=== PATIENT | female | born 1980 | race Caucasian/White ===

== ENCOUNTER 2017-06-15 19:03 | Inpatient (IN) | payer OTHER ==
--- NOTE | 2017-06-15 21:09 | OBPROG ---
Labor Progress Note Assessment/Plan: Assessment: cat 1 fhr exam 50/-3 ballotable soft posterior cephalic no contractions noted continuous monitoring derek in office 4-5 placenta calcifications Plan: admit for iol chau bulb pitocin per protocol 06/15/17 21:07 Subjective/Intrapartum Course: 06/15/17 21:06 Doing well denies pain. Able to discuss POC denies questions ok with placement of the chau bulb to assist with ripening of the cervix - SVE Dilation (cm): 1 Effacement (%): 50 Station: -2 Membranes: Intact - FHR Assessment Gonzalez FHR (bpm): 135 FHR Pattern Variability: Moderate - Physical Exam General Appearance: WD/WN, alert, no apparent distress Respiratory: chest non-tender, lungs clear, normal breath sounds Cardiac/Chest: regular rate, rhythm Abdomen: normal bowel sounds Extremities: normal range of motion, Chely's sign (negative bilaterally) DTR- Lower Extremities: Knee (R): 1+, Knee (L): 1+ (no clonus) Skin: normal color, warm/dry Neuro/Psych: no motor/sensory deficits, alert, normal mood/affect, oriented x 3 Oxytocin Orders Assessment - Pre-Induction/Augmentation Assessment Gestational Age: 39 week(s) and 1 day(s) ICD10 Worksheet Patient Problems: Problems Problem Status Onset iol low derek term Acute
[2017-06-15] MEDS ORDERED: OXYTOCIN 20 UNIT in LR 1,000 ML IV PRN (21:10)
[2017-06-15] MEDS ORDERED: TERBUTALINE SULFATE 1 MG/ML VIAL IV PRN (21:10)
[2017-06-15] MEDS ORDERED: EPSOM SALT 454 GM TP PRN (21:10)
[2017-06-15] MEDS ORDERED: LR 1,000 ML IV PRN (21:10)
[2017-06-15] MEDS ORDERED: OLIVE OIL 118 ML BTL MISC PRN (21:10)
[2017-06-15 22:20] LABS: % IMMATURE GRANULYOCYTES 0.5 % (0.0-1.1); ABSOLUTE IMMATURE GRANULOCYTES 0.05 10^3/uL (0.00-0.10); ADD DIFF? NO; ADD MORPH? NO; ADD SCAN? NO; ATYPICAL LYMPHOCYTE FLAG 0 (0-99); FRAGMENT RBC FLAG 10 (0-99); HEMATOCRIT 36.4 % (38.0-47.0); HEMOGLOBIN 12.9 g/dL (12.6-16.3); LEFT SHIFT FLG 0 (0-99); LIPEMIA HEMOLYSIS FLAG 90 (0-99); MEAN CELL HEMOGLOBIN 31.5 pg (27.9-34.1); MEAN CELL HEMOGLOBIN CONCENTR. 35.4 g/dL (32.4-36.7); MEAN PLATELET VOLUME 9.6 fL (8.7-11.7); PLATELET CLUMPS FLAG 10 (0-99); PLATELET COUNT 307 10^3/uL (150-400); RED BLOOD CELL COUNT 4.09 10^6/uL (4.18-5.33)
--- NOTE | 2017-06-15 22:56 | GHP ---
[f rep st] HISTORY AND PHYSICAL DATE OF ADMISSION: 06/15/2017 HISTORY OF PRESENT ILLNESS: Patient is a 1, para 0, 36-year-old, with an EDC of 06/21/2017, who comes in on June 15 from the office with decreased ALY 4-5, decreased movement. NST th at was reactive and reassuring in the office, for induction of labor with a Ring bulb and then Pitoc in per protocol. The patient has been routinely seeing [facility] since 17 weeks and 6 day s. MEDICAL HISTORY: Asthma, exercise-induced; UTI; mild headaches; dizziness; cystitis. SURGICAL HISTORY: [place] teeth extraction. SPECIAL DIET: Patient is a vegetarian. PRESENT HISTORY: Rubella nonimmune, AMA, Rh negative. GYNECOLOGICAL HISTORY: 12 years for beginning of menarche, 28 days, 5-7 day length. Last menstrual period was 09/14/2016. Certain dates, test that was positive on 10/12/2016. Patient is a 2, P0, A1, living 0. EAB was in 2014. OTHER GYNECOLOGICAL HISTORY ParaGard was inserted in 08/2014. IUD removed in 07/2016. Last Pap was 12/18/2016. That was within normal limits. PHYSICAL ASSESSMENT: GENERAL: Patient is awake, alert, oriented x3. LUNGS: Clear bilaterally. AB DOMEN: Bowel sounds are positive in all 4 quadrants. EXTREMITIES: DTRs are 1+ bilaterally. No leo nus. Homans sign is negative bilaterally. LABS: RPR is nonreactive. Gonorrhea and chlamydia are negative. Hepatitis B is negative. Hepatiti s C is negative. HSV is negative. 1 and 2 are negative. HIV is negative. Parvovirus is immune. G BS is negative. was negative. Trio screen was negative. TSH was within normal limits at 1.42. AFP was negative. 1-hour GTT was within normal limits. Varicella was negative. SOCIAL HISTORY: Patient denies tobacco use. Denies drug use. to Burak. Burak has a 4- year-old son, Davide. ALLERGIES: No known drug allergies. ROUTINE MEDICATIONS: vitamins with DHA, vitamin D 3000 international units, ProAir inhaler of albuterol when needed. PLAN OF CARE: 1. GBS negative. 2. Ring bulb for mechanical dilation of cervix. 3. Pitocin per protocol. 4. Consult physician as needed for plan of care. /[id number]/MODL
--- NOTE | 2017-06-15 23:44 | OBPROG ---
Labor Progress Note Assessment/Plan: Assessment: cat 1 fhr exam 450/-2 soft posterior cephalic irregular contractions continuous monitoring chau bulb out with traction declines pitocin at this time would like to rest until the am 0430 will begin pitocin per protocol derek in office 4-5 placenta calcifications Plan: pitocin per protocol 06/15/17 21:07 06/15/17 23:42 Subjective/Intrapartum Course: 06/15/17 21:06 Doing well denies pain. Able to discuss POC denies questions ok with placement of the chau bulb to assist with ripening of the cervix 06/15/17 23:43 resting well. Feeling back pain irregularly Objective: 06/15/17 22:06 Patient ABO/Rh O NEGATIVE 06/15/17 22:06 - SVE Dilation (cm): 4 Effacement (%): 50 Station: -2 Membranes: Intact - Contraction Pattern Assessment Current Contraction Pattern: Irregular - FHR Assessment Gonzalez FHR (bpm): 135 FHR Pattern Variability: Moderate FHR Category: 1 Oxytocin Orders Assessment - Pre-Induction/Augmentation Assessment Gestational Age: 39 week(s) and 1 day(s) ICD10 Worksheet Patient Problems: Problems Problem Status Onset iol low derek term Acute
[2017-06-15] MEDS ORDERED: OXYTOCIN 30 UNIT in NS 500 ML IV SCH (23:45)
[2017-06-16] MEDS ORDERED: LIDOCAINE 1% 300 MG/30 ML SDV ONE (05:35)
[2017-06-16] MEDS ORDERED: OLIVE OIL 118 ML BTL ONE (05:35)
[2017-06-16] MEDS ORDERED: MISOPROSTOL 200 MCG TAB ONE (05:36)
[2017-06-16] MEDS ORDERED: TERBUTALINE SULFATE 1 MG/ML VIAL ONE (05:36)
[2017-06-16] MEDS ORDERED: OXYTOCIN 10 UNIT/ML VIAL ONE (05:36)
[2017-06-16] MEDS ORDERED: AMMONIA AROMATIC 1 EACH AMP IH ONE (05:36)
--- NOTE | 2017-06-16 08:22 | OBPROG ---
Labor Progress Note Assessment/Plan: Assessment: 36 y/o @ 39 3/7 weeks IOL secondary to oligohydramnios. Plan: Pt had good cervical ripening with the chau and is now on pitocin, gradually increasing dose to achieve a good labor pattern. I will re check her in a few hours and likely AROM. Pt is open to pain mangement options PRN. 06/16/17 08:19 Subjective/Intrapartum Course: 06/15/17 21:06 Doing well denies pain. Able to discuss POC denies questions ok with placement of the chau bulb to assist with ripening of the cervix 06/15/17 23:43 resting well. Feeling back pain irregularly 06/16/17 08:18 Pt is resting well now, she did sleep overnight. She is beginning to feel some tightening and is ready for the IOL today. Objective: 06/15/17 22:06 Patient ABO/Rh O NEGATIVE 06/15/17 22:06 - SVE Dilation (cm): 3 Effacement (%): 50 Station: -2 Membranes: Intact - Contraction Pattern Assessment Current Contraction Pattern: Irregular - FHR Assessment Gonzalez FHR (bpm): 130 FHR Pattern Variability: Moderate FHR Category: 1 Oxytocin Orders Assessment - Pre-Induction/Augmentation Assessment Gestational Age: 39 week(s) and 1 day(s) ICD10 Worksheet Patient Problems: Problems Problem Status Onset iol low derek term Acute
--- NOTE | 2017-06-16 13:14 | OBPROG ---
Labor Progress Note Assessment/Plan: Assessment: 36 y/o @ 39 3/7 weeks IOL secondary to oligohydramnios. Plan: Pt is developing a good labor pattern on pitocin, contractions are still mild. AROM now for clear fluid, will gauge pitocin dose now based on symptoms and contraction pattern. status reassuring, pain management prn. 06/16/17 08:19 06/16/17 13:13 Subjective/Intrapartum Course: 06/15/17 21:06 Doing well denies pain. Able to discuss POC denies questions ok with placement of the chau bulb to assist with ripening of the cervix 06/15/17 23:43 resting well. Feeling back pain irregularly 06/16/17 08:18 Pt is resting well now, she did sleep overnight. She is beginning to feel some tightening and is ready for the IOL today. 06/16/17 13:10 Pt is beginning to feel some cramping and increased contractions, but she still feels that they are mild. Objective: 06/15/17 22:06 Patient ABO/Rh O NEGATIVE 06/15/17 22:06 - SVE Dilation (cm): 4 Effacement (%): 75 Station: -2 Membranes: AROM, Intact Amniotic Fluid Color: Clear - Contraction Pattern Assessment Current Contraction Pattern: Irregular (Q 3-4) - FHR Assessment Gonzalez FHR (bpm): 130 FHR Pattern Variability: Moderate FHR Category: 1 - Procedures Non-surgical Procedures: Amniotomy - AP Antepartum Course: 06/16/17 13:11 AMA, Rh neg s/p Rhogam, exercise induced asthma, rubella low immune, IOL @ 39 weeks secondary to oligo and grade III placenta Oxytocin Orders Assessment - Pre-Induction/Augmentation Assessment Gestational Age: 39 week(s) and 1 day(s) ICD10 Worksheet Patient Problems: Problems Problem Status Onset iol low derek term Acute
--- NOTE | 2017-06-16 15:33 | OBPROG ---
Labor Progress Note Assessment/Plan: Assessment: 36 y/o @ 39 3/7 weeks IOL secondary to oligohydramnios. Plan: Pt is coping well with contractions, she is making steady progress of cervical change. Will continue pitocin to maintain a good labor pattern. status is reassuring. 06/16/17 08:19 06/16/17 13:13 06/16/17 15:32 Subjective/Intrapartum Course: 06/15/17 21:06 Doing well denies pain. Able to discuss POC denies questions ok with placement of the chau bulb to assist with ripening of the cervix 06/15/17 23:43 resting well. Feeling back pain irregularly 06/16/17 08:18 Pt is resting well now, she did sleep overnight. She is beginning to feel some tightening and is ready for the IOL today. 06/16/17 13:10 Pt is beginning to feel some cramping and increased contractions, but she still feels that they are mild. 06/16/17 15:31 Pt is feeling more contractions, but she is coping well. She is ambulating and desires to get into the tub. Objective: 06/15/17 22:06 Patient ABO/Rh O NEGATIVE 06/15/17 22:06 - SVE Dilation (cm): 6 Effacement (%): 75 Station: -1 Membranes: AROM, Intact Amniotic Fluid Color: Clear - Contraction Pattern Assessment Current Contraction Pattern: Regular (Q 2-3), Irregular (Q 3-4) - FHR Assessment Gonzalez FHR (bpm): 140 FHR Pattern Variability: Moderate FHR Category: 1 - Procedures Non-surgical Procedures: Amniotomy - AP Antepartum Course: 06/16/17 13:11 AMA, Rh neg s/p Rhogam, exercise induced asthma, rubella low immune, IOL @ 39 weeks secondary to oligo and grade III placenta Oxytocin Orders Assessment - Pre-Induction/Augmentation Assessment Gestational Age: 39 week(s) and 1 day(s) ICD10 Worksheet Patient Problems: Problems Problem Status Onset iol low derek term Acute
[2017-06-16] MEDS ORDERED: BUPIVACAINE 0.25% 30 ML SDV ONE (16:57)
[2017-06-16] MEDS ORDERED: PHENYLEPHRINE HCL 100 MCG/ML SYR ONE (16:57)
[2017-06-16] MEDS ORDERED: fentaNYL 100 MCG/2 ML INJ ONE (16:58)
[2017-06-16] MEDS ORDERED: LR 500 ML IV SCH (17:00)
[2017-06-16] MEDS ORDERED: fentaNYL 2MCG/ML/BUP 0.1% RTU 100 ML EP SCH (17:00)
[2017-06-16] MEDS ORDERED: PHENYLEPHRINE HCL 100 MCG/ML SYR IVP PRN (17:00)
--- NOTE | 2017-06-16 17:02 | PREANESOB ---
Obstetric Pre-Anesthesia Info - General Info Proposed Procedure: SANDIP : 1 Para: 0 JACKY: 06/21/17 Gestational Age: 39 week(s) and 1 day(s) - Info Status: Oligohydramnios FHR Pattern: Reassuring - Labor Status Cervical Dilation per last OB SVE: 6 Station per last OB SVE: -1 Rupture of Membranes Date: 06/16/17 Rupture of Membranes Time: 13:08 Amniotic Fluid Color: Clear Indications for Labor Analgesia: Pain Control Labor Epidural: Proposed Anesthesia Allergies/Adverse Reactions: Allergy/AdvReac Type Severity Reaction Status Date / Time No Known Allergies Allergy Unverified 06/15/17 19:11 Home Medications: Medication Instructions Recorded Dha 06/15/17 Vit D3/Folic Acid/B2/B6/B12 06/15/17 Visit Medications: Generic Name Dose Route Start Last Admin Trade Name Freq PRN Reason Stop Dose Admin Lactated Ringer's 1,000 mls @ 0 mls/hr 06/15/17 21:10 06/16/17 07:13 Lr IV 06/16/17 21:09 1,000 mls PRN PRN Administration SEE PROTOCOL CONDITIONS Protocol Per Protocol Oxytocin 20 unit/ Lactated 1,002 mls @ 150 mls/hr 06/15/17 21:10 Ringer's IV PRN PRN Post- bleeding Oxytocin 30 unit/ Sodium 503 mls @ 0 mls/hr 06/15/17 23:45 06/16/17 07:13 Chloride IV 12/12/17 23:44 503 mls CONT WILLIAM Administration Per Protocol Ibuprofen 600 mg 06/15/17 21:10 Motrin PO 12/12/17 21:09 Q6HRS PRN post , inflammation Magnesium Sulfate 454 gm 06/15/17 21:10 Epsom Salt TP 12/12/17 21:09 Q1H PRN perineal discomfort [place] Oil 118 ml 06/15/17 21:10 Sweet Oil MISC 12/12/17 21:09 ONCE PRN perineal massage Terbutaline Sulfate 0.25 mg 06/15/17 21:10 Brethine IV 12/12/17 21:09 ONCE PRN Tachysystole Discontinued Medications Generic Name Dose Route Start Last Admin Trade Name Freq PRN Reason Stop Dose Admin Ammonia (Aromatic Spirit) Confirm 06/16/17 05:36 Ammonia Aromatic Administered 06/16/17 05:37 Dose 1 each IH .STK-MED ONE Bupivacaine HCl Confirm 06/16/17 16:57 Sensorcaine 0.25% Sdv Administered 06/16/17 16:58 Dose 30 ml .ROUTE .STK-MED ONE Fentanyl Confirm 06/16/17 16:58 Sublimaze Administered 06/16/17 16:59 Dose 100 mcg .ROUTE .STK-MED ONE Lidocaine HCl Confirm 06/16/17 05:35 Lidocaine Hcl 1% Administered 06/16/17 05:36 Dose 300 mg .ROUTE .STK-MED ONE Misoprostol Confirm 06/16/17 05:36 Cytotec Administered 06/16/17 05:37 Dose 800 mcg .ROUTE .STK-MED ONE [place] Oil Confirm 06/16/17 05:35 Sweet Oil Administered 06/16/17 05:36 Dose 118 ml .ROUTE .STK-MED ONE Oxytocin Confirm 06/16/17 05:36 Pitocin Administered 06/16/17 05:37 Dose 40 unit .ROUTE .STK-MED ONE Phenylephrine HCl Confirm 06/16/17 16:57 Neosynephrine Administered 06/16/17 16:58 Dose 1,000 mcg .ROUTE .STK-MED ONE Terbutaline Sulfate Confirm 06/16/17 05:36 Brethine Administered 06/16/17 05:37 Dose 1 mg .ROUTE .STK-MED ONE - Vital Signs Height/Weight (Nursing): Height 154.94 cm Weight 69.4 kg Labs: 06/15/17 22:06 Patient ABO/Rh O NEGATIVE 06/15/17 22:06
[2017-06-16] MEDS ORDERED: FENT2MCG/ML&BUP0.1% 1 EA, fentaNYL 200 MCG, BUPIVACAINE 0.5% 20 ML in NS 100 ML IV SCH (17:10)
[2017-06-16] MEDS ORDERED: NARCOTIC DRIP BAG-TOTAL ALL TYPES IV PRN (17:10)
--- NOTE | 2017-06-16 17:47 | POSTANESTH ---
Post Anesthetic Evaluation Cardiovascular Status: Normal, Stable, Similar to Pre-Op Cond Respiratory Status: Normal, Stable, Similar to Pre-op Cond. Level of Consciousness/Mental Status: Can Participate in Eval, Alert and Oriented Pain Control: Adequate, Prn Tx Ordered Nausea/Vomiting Control: Adequate, Prn Tx Ordered Complications Possibly Related to Anesthesia: None Noted (Excellent analgesia.)
--- NOTE | 2017-06-16 19:02 | OBPROG ---
Labor Progress Note Assessment/Plan: Assessment: 36 y/o @ 39 3/7 weeks IOL secondary to oligohydramnios. Plan: Pt is making steady cervical change. Comfortable with her epidural. Will re check 1-2 hours. 06/16/17 08:19 06/16/17 13:13 06/16/17 15:32 06/16/17 19:03 Subjective/Intrapartum Course: 06/15/17 21:06 Doing well denies pain. Able to discuss POC denies questions ok with placement of the chau bulb to assist with ripening of the cervix 06/15/17 23:43 resting well. Feeling back pain irregularly 06/16/17 08:18 Pt is resting well now, she did sleep overnight. She is beginning to feel some tightening and is ready for the IOL today. 06/16/17 13:10 Pt is beginning to feel some cramping and increased contractions, but she still feels that they are mild. 06/16/17 15:31 Pt is feeling more contractions, but she is coping well. She is ambulating and desires to get into the tub. 06/16/17 18:58 Pt is now comfortable with her epidural. Objective: 06/15/17 22:06 Patient ABO/Rh O NEGATIVE 06/15/17 22:06 - SVE Dilation (cm): 7 Effacement (%): 90 Station: 0 Membranes: AROM, Intact Amniotic Fluid Color: Clear - Contraction Pattern Assessment Current Contraction Pattern: Regular (Q 2-3), Irregular (Q 3-4) - FHR Assessment Gonzalez FHR (bpm): 130 FHR Pattern Variability: Moderate FHR Category: 1 - Procedures Non-surgical Procedures: Amniotomy - AP Antepartum Course: 06/16/17 13:11 AMA, Rh neg s/p Rhogam, exercise induced asthma, rubella low immune, IOL @ 39 weeks secondary to oligo and grade III placenta Oxytocin Orders Assessment - Pre-Induction/Augmentation Assessment Gestational Age: 39 week(s) and 1 day(s) ICD10 Worksheet Patient Problems: Problems Problem Status Onset iol low derek term Acute
--- NOTE | 2017-06-16 22:13 | OBPROG ---
Labor Progress Note Assessment/Plan: Assessment: 36 y/o @ 39 3/7 weeks IOL secondary to oligohydramnios. Plan: Pt is progressing slowly but not quite ready to begin 2nd stage. She will push her bolus button and try to labor down now. 06/16/17 08:19 06/16/17 13:13 06/16/17 15:32 06/16/17 19:03 06/16/17 22:13 Subjective/Intrapartum Course: 06/15/17 21:06 Doing well denies pain. Able to discuss POC denies questions ok with placement of the chau bulb to assist with ripening of the cervix 06/15/17 23:43 resting well. Feeling back pain irregularly 06/16/17 08:18 Pt is resting well now, she did sleep overnight. She is beginning to feel some tightening and is ready for the IOL today. 06/16/17 13:10 Pt is beginning to feel some cramping and increased contractions, but she still feels that they are mild. 06/16/17 15:31 Pt is feeling more contractions, but she is coping well. She is ambulating and desires to get into the tub. 06/16/17 18:58 Pt is now comfortable with her epidural. 06/16/17 22:09 Pt is beginning to feel pain and pressure in her lower abdomen and back and she is getting pretty uncomfortable. Objective: 06/15/17 22:06 Patient ABO/Rh O NEGATIVE 06/15/17 22:06 - SVE Dilation (cm): 9 Effacement (%): 100 Station: +1 Membranes: AROM, Intact Amniotic Fluid Color: Clear - Contraction Pattern Assessment Current Contraction Pattern: Regular (Q 2), Irregular (Q 3-4) - FHR Assessment Gonzalez FHR (bpm): 140 FHR Pattern Variability: Moderate FHR Category: 1 - Procedures Non-surgical Procedures: Amniotomy - AP Antepartum Course: 06/16/17 13:11 AMA, Rh neg s/p Rhogam, exercise induced asthma, rubella low immune, IOL @ 39 weeks secondary to oligo and grade III placenta Oxytocin Orders Assessment - Pre-Induction/Augmentation Assessment Gestational Age: 39 week(s) and 1 day(s) ICD10 Worksheet Patient Problems: Problems Problem Status Onset iol low derek term Acute
[2017-06-17] MEDS ORDERED: HEMABATE 250 MCG/1 ML AMP IM ONE (07:10)
[2017-06-17] MEDS ORDERED: METHYLERGONOVINE MAL 0.2 MG/ML INJ ONE (07:11)
[2017-06-17] MEDS ORDERED: HYDROCODONE/APAP 5/325 TAB PO PRN (08:34)
[2017-06-17] MEDS ORDERED: SIMETHICONE 80 MG TAB CHEW PO PRN (08:34)
[2017-06-17] MEDS ORDERED: HYDROCORTISONE 0.5% CREAM TP PRN (08:34)
[2017-06-17] MEDS ORDERED: ACETAMINOPHEN 325 MG TAB PO PRN (08:34)
[2017-06-17] MEDS ORDERED: fentaNYL 100 MCG/2 ML INJ IVP ONE (11:15)
[2017-06-17] MEDS: IBUPROFEN 600 MG TAB PO PRN ×2 (12:20→18:25)
--- NOTE | 2017-06-17 17:22 | OBDEL ---
Info Type: Vaginal Presentation at Delivery: Vertex L&D Analgesia/Anesthesia Type: Epidural, Nitrous GBS+: No Intrapartum Medications: Generic Name Dose Route Start Last Admin Trade Name Freq PRN Reason Stop Dose Admin Oxytocin 30 unit/ Sodium 503 mls @ 0 mls/hr 06/15/17 23:45 06/16/17 07:13 Chloride IV 12/12/17 23:44 503 mls CONT WILLIAM Administration Per Protocol Ibuprofen 600 mg 06/15/17 21:10 06/17/17 12:20 Motrin PO 12/12/17 21:09 600 mg Q6HRS PRN Administration post , inflammation Discontinued Medications Generic Name Dose Route Start Last Admin Trade Name Freq PRN Reason Stop Dose Admin Lactated Ringer's 1,000 mls @ 0 mls/hr 06/15/17 21:10 06/16/17 07:13 Lr IV 06/16/17 21:09 1,000 mls PRN PRN Administration SEE PROTOCOL CONDITIONS Protocol Per Protocol - Hospital Course Intrapartum: 06/15/17 21:06 Doing well denies pain. Able to discuss POC denies questions ok with placement of the chau bulb to assist with ripening of the cervix 06/15/17 23:43 resting well. Feeling back pain irregularly 06/16/17 08:18 Pt is resting well now, she did sleep overnight. She is beginning to feel some tightening and is ready for the IOL today. 06/16/17 13:10 Pt is beginning to feel some cramping and increased contractions, but she still feels that they are mild. 06/16/17 15:31 Pt is feeling more contractions, but she is coping well. She is ambulating and desires to get into the tub. 06/16/17 18:58 Pt is now comfortable with her epidural. 06/16/17 22:09 Pt is beginning to feel pain and pressure in her lower abdomen and back and she is getting pretty uncomfortable. Indications for Delivery: Oligohydramnios Vaginal Delivery - Delivery Provider Delivery Physician/CNM: Kamla Carmona - Labor and Delivery Onset of Contractions Date: 06/16/17 Onset of Contractions Time: 14:00 Onset of Contractions Type: Induced Rupture of Membranes Date: 06/16/17 Rupture of Membranes Time: 13:08 Rupture of Membranes Type: Artificial Amniotic Fluid Color: Clear Dilation Complete Date: 06/17/17 Dilation Complete Time: 01:30 Placenta Delivery Date: 06/17/17 Placenta Delivery Time: 08:16 Total Hours of Labor: 18 Non-surgical Procedures: Amniotomy Laceration: 2nd Degree Repair: 3-0 Vaginal Sponge Count Correct: Yes Vaginal Needle Count Correct: Yes Vaginal Sweep Performed: No EBL: 200 Delivery Events: Other (Specify) (pr cytotec given prophylactically as patient had been on 32 of pitocin) Delivery Comment: Dr olamide thomas applied a vacuum while patient was pushing for maternal exhaustion. vacuum was used with 5 pulls and had 3 pop offs. head came down some. I came perfusionist at 7 am and resumed pushing with the patient. status remained reassuring and patient was able to deliver vaginally without further intervention or use of vacuum. - Medications Labor Augmentation/Induction Methods Used: Pitocin Labor Augmentation/Induction Indication: Other (Specify) (oligohydramnios) Assissted Delivery Assisted Delivery Type: Vacuum Pop offs (Total): 3 Pulls (Total): 5 Assisted Delivery Comment: vacuum was applied by dr olamide thomas. she discontinued using the vacuum after the third pop off. I then came on and continued pushing with the patient. Holiday Data JACKY: 06/21/17 Gestational Age: 39 week(s) and 3 day(s) Gonzalez Delivery Date: 06/17/17 Delivery Time: 08:08 Sex of Infant: Female Score (1 Min): 7 Score (5 Min): 9 ICD10 Worksheet Patient Problems: Problems Problem Status Onset iol low derek term Acute
--- NOTE | 2017-06-17 22:09 | OBPROG ---
Labor Progress Note Assessment/Plan: Assessment: 36 y/o @ 39 3/7 weeks IOL secondary to oligohydramnios. Plan: Coordinated with maternal pushing efforts, vacuum was applied. 5 times with 3 pop-offs. head was brought down to outlet and successful vaginal delivery was completed with maternal efforts alone. Dr. Carmona took over the care of this patient @ 7:00 and completed the delivery. 06/16/17 08:19 06/16/17 13:13 06/16/17 15:32 06/16/17 19:03 06/16/17 22:13 06/17/17 22:09 Subjective/Intrapartum Course: 06/15/17 21:06 Doing well denies pain. Able to discuss POC denies questions ok with placement of the chau bulb to assist with ripening of the cervix 06/15/17 23:43 resting well. Feeling back pain irregularly 06/16/17 08:18 Pt is resting well now, she did sleep overnight. She is beginning to feel some tightening and is ready for the IOL today. 06/16/17 13:10 Pt is beginning to feel some cramping and increased contractions, but she still feels that they are mild. 06/16/17 15:31 Pt is feeling more contractions, but she is coping well. She is ambulating and desires to get into the tub. 06/16/17 18:58 Pt is now comfortable with her epidural. 06/16/17 22:09 Pt is beginning to feel pain and pressure in her lower abdomen and back and she is getting pretty uncomfortable. 06/17/17 22:06 Late entry labor progress note as an addendum to Delivery note by Dr. Carmona. Pt was pushing for greater than 3 hours, baby in OP presentation. Kiwi vacuum applied to vertex to facilitate maternal pushing efforts. Objective: 06/15/17 22:06 Patient ABO/Rh O NEGATIVE 06/15/17 22:06 Temp Pulse Resp BP Pulse Ox 37.1 C 86 16 112/61 95 06/17/17 14:00 06/17/17 14:00 06/17/17 14:00 06/17/17 14:00 06/17/17 14:00 - SVE Dilation (cm): 10 Effacement (%): 100 Station: +3 Membranes: AROM, Intact Amniotic Fluid Color: Clear Dilation Complete Date: 06/17/17 Dilation Complete Time: 01:30 - Contraction Pattern Assessment Current Contraction Pattern: Regular (Q 2), Irregular (Q 3-4) - FHR Assessment Gonzalez FHR (bpm): 140 FHR Pattern Variability: Moderate FHR Category: 1 - Procedures Non-surgical Procedures: Amniotomy, Other (Specify) (vacuum ) - AP Antepartum Course: 06/16/17 13:11 AMA, Rh neg s/p Rhogam, exercise induced asthma, rubella low immune, IOL @ 39 weeks secondary to oligo and grade III placenta Oxytocin Orders Assessment - Pre-Induction/Augmentation Assessment Gestational Age: 39 week(s) and 1 day(s) ICD10 Worksheet Patient Problems: Problems Problem Status Onset Delivery normal Acute iol low derek term Acute
[2017-06-18] MEDS: IBUPROFEN 600 MG TAB PO PRN ×4 (02:04→19:53)
--- NOTE | 2017-06-18 08:58 | OBPP ---
Progress Note Assessment/Plan: Assessment: 1) s/p PPD # 1 - pt is stable 2) Anemia - pt is asymptomatic 3) Rh negative - RhoGam eval Plan: Continue routine pp care today Plan for d/c home in am 06/1906/18/17 08:55 Subjective/ Course: 06/18/17 08:56 Pt seen and examined. Doing well with no complaints. Mild cramping. Mod lochia. Pt is OOB, kiran regular diet, passing flatus. No BM. BF with some difficulty with latch. Objective: 06/15/17 22:06 Patient ABO/Rh O NEGATIVE 06/15/17 22:06 Temp Pulse Resp BP Pulse Ox 37.1 C 86 16 112/61 95 06/17/17 14:00 06/17/17 14:00 06/17/17 14:00 06/17/17 14:00 06/17/17 14:00 Uterine Position/Fundal Height: Umbilicus -2 Uterine Tone: Firm Physical Exam - Physical Exam Respiratory: lungs clear, normal breath sounds Cardiac/Chest: regular rate, rhythm Abdomen: normal bowel sounds, non-tender, soft, flatus (+) Extremities: non-tender, normal inspection Skin: normal color, warm/dry Neuro/Psych: alert, normal mood/affect, oriented x 3
[2017-06-18] MEDS: DOCUSATE SODIUM 100 MG CAP PO PRN (09:15)
[2017-06-18 19:31] VITALS: RESP 18
[2017-06-19] MEDS: IBUPROFEN 600 MG TAB PO PRN ×2 (01:19→08:46)
[2017-06-19 08:40] VITALS: BP 112/74; PULSE 66; TEMP 97.9; O2SAT 99
[2017-06-19] MEDS: DOCUSATE SODIUM 100 MG CAP PO PRN (08:46)
--- NOTE | 2017-06-19 10:19 | OBGCSDC ---
General Delivery Information - General Info : 1 Para: 1 Abortions: 0 Type: Vaginal L&D Analgesia/Anesthesia Type: Epidural, Nitrous Admission Date: 06/15/17 Labs: Patient ABO/Rh O NEGATIVE 06/15/17 22:06 Hct 36.4 % (38.0-47.0) L 06/15/17 22:06 - Hospital Course Antepartum: 06/16/17 13:11 AMA, Rh neg s/p Rhogam, exercise induced asthma, rubella low immune, IOL @ 39 weeks secondary to oligo and grade III placenta Intrapartum: 06/15/17 21:06 Doing well denies pain. Able to discuss POC denies questions ok with placement of the chau bulb to assist with ripening of the cervix 06/15/17 23:43 resting well. Feeling back pain irregularly 06/16/17 08:18 Pt is resting well now, she did sleep overnight. She is beginning to feel some tightening and is ready for the IOL today. 06/16/17 13:10 Pt is beginning to feel some cramping and increased contractions, but she still feels that they are mild. 06/16/17 15:31 Pt is feeling more contractions, but she is coping well. She is ambulating and desires to get into the tub. 06/16/17 18:58 Pt is now comfortable with her epidural. 06/16/17 22:09 Pt is beginning to feel pain and pressure in her lower abdomen and back and she is getting pretty uncomfortable. 06/17/17 22:06 Late entry labor progress note as an addendum to Delivery note by Dr. Carmona. Pt was pushing for greater than 3 hours, baby in OP presentation. Kiwi vacuum applied to vertex to facilitate maternal pushing efforts. : 06/18/17 08:56 Pt seen and examined. Doing well with no complaints. Mild cramping. Mod lochia. Pt is OOB, kiran regular diet, passing flatus. No BM. BF with some difficulty with latch. 06/19/17 10:29 S) Pt doing well, reports min pain and bleeding. she is ambulating and voiding without difficulty. She is . She desires discharge home today. O) VSS, afebrile constitutional: WNWF, A&Ox3 HEENT: normocephalic, atraumatic, supple Heart: RRR, No murmur Chest: CTA-B Abdomen: Soft, nontender Uterus: Firm at U-2 Lochia: Minimal rubra Perineum: Intact, healing well Extremities: Trace edema, and negative Chely's sign Neuro: Grossly normal A) 36-year-old S/P PPD#2 P) Discharge home today Continue Pelvic rest x6wks Discussed danger signs (infection, preeclampsia, depression, heavy bleeding, etc ) RTO in 4/6 weeks Vaginal - Delivery Provider Delivery Physician/CNM: Kamla Carmona - Diagnosis Labor: Induced Rupture of Membranes Type: Artificial Amniotic Fluid Color: Clear Laceration: 2nd Degree Repair: 3-0 Delivery Events: Other (Specify) (pr cytotec given prophylactically as patient had been on 32 of pitocin) - Procedures Assisted Delivery Type: Vacuum Non-surgical Procedures: Amniotomy, Other (Specify) (vacuum ) - Delivery Non-surgical Procedures: Amniotomy, Other (Specify) (vacuum ) [place] Data JACKY: 06/21/17 Gestational Age: 39 week(s) and 5 day(s) Gonzalez Delivery Date: 06/17/17 Delivery Time: 08:08 Sex of : Female Score (1 Min): 7 Score (5 Min): 9 Discharge Information - Discharge Information Prescriptions: Ibuprofen [Motrin (*)] 600 mg PO Q6HRS PRN #30 tab PRN Reason: post , inflammation Condition: Good
== END 2017-06-19 12:45 | disposition home or self-care (01) | DRG 775 ==
LOC: FLD 19:03 → FOB 06-17 12:59
PROVIDERS: ADMIT Advanced Practice Midwife; ATTEND Advanced Practice Midwife
PROC: 3E033VJ Introduction of Other Hormone into Peripheral Vein, Percutaneous Approach (ICD-10-PCS; principal; 2017-06-17)
PROC: 10907ZC Drainage of Amniotic Fluid, Therapeutic from Products of Conception, Via Natural or Artificial Opening (ICD-10-PCS; principal; 2017-06-17)
PROC: 10E0XZZ Delivery of Products of Conception, External Approach (ICD-10-PCS; principal; 2017-06-17)
PROC: 0KQM0ZZ Repair Perineum Muscle, Open Approach (ICD-10-PCS; principal; 2017-06-17)
PROC: 0U7C7ZZ Dilation of Cervix, Via Natural or Artificial Opening (ICD-10-PCS; principal; 2017-06-17)
DX: O41.03X0 Oligohydramnios, third trimester, not applicable or unspecified (principal); Z37.0 Single live birth; Z3A.39 39 weeks gestation of pregnancy; O70.1 Second degree perineal laceration during delivery; O75.81 Maternal exhaustion complicating labor and delivery; O66.5 Attempted application of vacuum extractor and forceps
CPT/HCPCS: J2210; J2370; J3010; J3105